=== PATIENT | female | born 1990 | race Caucasian/White ===

== ENCOUNTER 2020-05-11 08:00 | Outpatient (CLI) | payer BC, MEDICAID ==
--- NOTE | 2020-05-11 13:11 | XRAY Report ---
PROCEDURE: Abdomen 1 View X-Ray INDICATIONS: PRESENCE OF IUD TECHNIQUE: 1 view of the abdomen were acquired. COMPARISON: 07/10/2016 FINDINGS: IUD projects over the central pelvis. Regional soft tissues are otherwise unremarkable. No acute osse ous abnormality. IMPRESSION: IUD projects over expected position in the pelvis. Reviewed by: Bryn Nolasco MD on 05/11/2020 1:10 PM PDT Approved by: Bryn Nolasco MD on 05/11/2020 1:10 PM PDT Station ID: [id number]
== END 2020-05-11 23:59 | disposition home or self-care (01) ==
LOC: DI.S 08:00
PROVIDERS: ATTEND Family Medicine
DX: Z97.5 Presence of (intrauterine) contraceptive device (principal)
CPT/HCPCS: 74018

== ENCOUNTER 2020-05-25 15:38 | Outpatient (CLI) | payer BC ==
--- NOTE | 2020-05-25 17:22 | Ultrasound Report ---
PROCEDURE: Pelvic w/Transvaginal INDICATIONS: MENSTRUAL PAIN TECHNIQUE: Real-time scanning was performed of the pelvic organs, with image documentation. Additional endovagi nal scanning was necessary due to incomplete visualization of the adnexal and endometrial structures by transabdominal scanning. COMPARISON: None. FINDINGS: Transabdominal scanning: Limited scanning through the kidneys shows no hydronephrosis. No pathologi c free abdominal or pelvic fluid. Endovaginal scanning: Uterus: Uterus is normal in size at 8.6 x 2.8 x 3.4 cm. The endometrium measures 2 mm in combined t hickness. An IUD is in satisfactory position. Ovaries: Right ovary measures 2.2 x 1.4 x 1.8 cm. Left ovary measures 2.6 x 2.0 x 2.4 cm. There is b ilateral intraovarian flow by duplex. IMPRESSION: 1. IUD in satisfactory position. 2. Otherwise unremarkable pelvic ultrasound. Reviewed by: Yasmany Hammer MD on 05/25/2020 5:21 PM PDT Approved by: Yasmany Hammer MD on 05/25/2020 5:21 PM PDT Station ID: [id number]
== END 2020-05-25 15:39 | disposition home or self-care (01) ==
LOC: DI 15:38
PROVIDERS: ATTEND Nurse Practitioner Family
DX: N94.6 Dysmenorrhea, unspecified (principal); Z97.5 Presence of (intrauterine) contraceptive device
CPT/HCPCS: 76830; 76856

== ENCOUNTER 2020-06-22 17:03 | Outpatient (CLI) | payer BC | END 2020-06-22 17:04 | disposition home or self-care (01) | LOC: COV 17:03 | PROVIDERS: ATTEND Family Medicine | DX: Z20.828 Contact with and (suspected) exposure to other viral communicable diseases (principal) ==

== ENCOUNTER 2020-10-09 07:58 | Outpatient (CLI) | payer BC ==
[2020-10-09 15:31] LABS: BASOPHILS % (AUTO) 0.5 %; EOSINOPHILS # (AUTO) 0.2 10^3/uL (0.0-0.7); EOSINOPHILS % (AUTO) 3.9 %; HGB - HEMOGLOBIN 14.7 g/dL (12.0-16.0); LYMPHOCYTES # (AUTO) 1.7 10^3/uL (1.5-3.5); LYMPHOCYTES % (AUTO) 30.6 %; MEAN CORPUSCULAR HEMOGLOBIN 31.1 pg (27.0-31.0); MEAN CORPUSCULAR HGB CONC 32.2 g/dL (32.0-36.0); MEAN CORPUSCULAR VOLUME 96.6 fL (81.0-99.0); MEAN PLATELET VOLUME 9.4 fL (7.9-10.8); MONOCYTES # (AUTO) 0.3 10^3/uL (0.0-1.0); MONOCYTES % (AUTO) 5.4 %; NEUTROPHILS # (AUTO) 3.3 10^3/uL (1.5-6.6); NEUTROPHILS % (AUTO) 59.2 %; PLT - PLATELET COUNT 357 10^3/uL (130-450); RED BLOOD COUNT 4.73 10^6/uL (4.20-5.40); RED CELL DISTRIBUTION WIDTH 13.1 % (12.0-15.0); WHITE BLOOD COUNT 5.6 x10^3/uL (4.8-10.8)
[2020-10-09 16:28] LABS: ALBUMIN 4.5 g/dL (3.2-5.5); ALBUMIN/GLOBULIN RATIO 1.7 (1.0-2.2); BILIRUBIN,TOTAL 0.7 mg/dL (0.2-1.0); CALCIUM 10.1 mg/dL (8.5-10.3); CREATININE 0.8 mg/dL (0.4-1.0); TOTAL PROTEIN 7.1 g/dL (6.7-8.2)
== END 2020-10-09 23:59 | disposition home or self-care (01) ==
LOC: LAB.S 07:58
PROVIDERS: ATTEND Physician Assistant Medical
DX: R14.0 Abdominal distension (gaseous) (principal); R10.13 Epigastric pain
CPT/HCPCS: 36415; 80053; 82150; 83690; 85025

== ENCOUNTER 2022-03-20 08:00 | Outpatient (CLI) | payer BC | END 2022-03-20 23:59 | disposition home or self-care (01) | LOC: LAB 08:00 | PROVIDERS: ATTEND Registered Nurse | DX: N30.00 Acute cystitis without hematuria (principal) | CPT/HCPCS: 87077; 87086 ==